=== PATIENT | male | born 1965 | race Caucasian/White ===

== ENCOUNTER 2025-08-03 06:00 | Day surgery (SDC) | payer BC ==
[~2025-08-03 06:00] MED LIST: Sodium Chloride 0.9% 10 ML Syringe FLUSH PRN; Sodium Chloride 0.9% 10 ML Syringe FLUSH SCH
[2025-08-03] MEDS: Lactated Ringers 1,000 ML IV SCH (06:10)
[2025-08-03] MEDS: oxyCODONE ER 10 MG TAB.ER PO ONE (06:23)
[2025-08-03 06:36] LABS: INR 1.03
[2025-08-03 06:37] LABS: PTT,PARTIAL THROMBOPLSTIN TIME 26.5 SECONDS (21.7-31.4)
[2025-08-03] MEDS ORDERED: propofoL 500 MG/50 ML 50 ML ONE ×2 (06:52→07:43)
[2025-08-03] MEDS ORDERED: fentaNYL 100 MCG/2 ML SDV ONE (06:52)
[2025-08-03] MEDS ORDERED: Phenylephrine 1% 10 MG/ML SDV ONE (07:23)
[2025-08-03] MEDS ORDERED: Lactated Ringers 1,000 ML ONE (07:43)
[2025-08-03] MEDS ORDERED: Ropivacaine 0.5% 5 MG/ML 30 ML SDV ONE (07:53)
[2025-08-03] MEDS: Morphine 8 MG, EPINEPHrine 0.3 MG, Cefuroxime 750 MG, Ketorolac 30 MG, Sodium Chloride ... PRN (08:04)
== END 2025-08-03 13:20 | disposition home or self-care (01) ==
LOC: JD.SDS 06:00
PROVIDERS: ATTEND Orthopaedic Surgery
DX: M17.12 Unilateral primary osteoarthritis, left knee (principal); I10 Essential (primary) hypertension; E78.2 Mixed hyperlipidemia; G47.33 Obstructive sleep apnea (adult) (pediatric); F17.290 Nicotine dependence, other tobacco product, uncomplicated; Z79.82 Long term (current) use of aspirin; Z79.899 Other long term (current) drug therapy
CPT/HCPCS: 0055T; 27447; 36415; 64447; 73560; 85610; 85730; 97116; 97161; 97530; A9270; C1713; C1776; J0169; J0690; J0697; J1885; J2272; J2371; J2704; J2795; J3010; J3373; J7120